=== PATIENT | male | born 1980 | race Two or more races ===

== ENCOUNTER 2018-11-15 01:06 | Emergency (ER) | payer OTHER ==
[~2018-11-15] VITALS: Ht 172.7 cm; Wt 77.1 kg
[2018-11-15] MEDS ORDERED: PANTOPRAZOLE SODIUM 40 MG TABLET.DR PO ONE ×2 (02:15→02:19)
[2018-11-15] MEDS ORDERED: MAG HYDROX/AL HYDROX/SIMETH 30 ML LIQUID UDC PO ONE (02:15)
--- NOTE | 2018-11-15 02:15 | NUR ---
Patient bib RA [id number] for the c/o mid abdominal pain x 3 days. Patient is AAO x 4 and states that pain is worsened. Patient denies N/V/D. Placed on monitor, safe environment implemented.
[2018-11-15] MEDS ORDERED: MAG HYDROX/AL HYDROX/SIMETH 30 ML LIQUID UDC ONE (02:18)
[2018-11-15] MEDS ORDERED: IV NORMAL SALINE 1000 ML BAG IV ONE ×2 (02:30→04:45)
[2018-11-15] MEDS ORDERED: ONDANSETRON 4 MG/2 ML VIAL IV ONE ×2 (02:30→04:45)
[2018-11-15] MEDS ORDERED: MORPHINE SULFATE 2 MG/1 ML DISP.SYRIN IV ONE ×2 (02:30→04:45)
[2018-11-15] MEDS ORDERED: ONDANSETRON 4 MG/2 ML VIAL ONE ×2 (02:36→04:44)
[2018-11-15] MEDS ORDERED: MORPHINE SULFATE 4 MG/1 ML DISP.SYRIN ONE (02:36)
[2018-11-15 02:45] LABS: BASOPHILS % (AUTO) 0.2 % (0.0-2.0); EOSINOPHILS # (AUTO) 0.1 K/uL (0.0-0.7); EOSINOPHILS % (AUTO) 0.9 % (0.0-7.0); HEMATOCRIT 36.3 % (36.7-47.1); HEMOGLOBIN 12.6 g/dL (12.5-16.3); LYMPHOCYTES # (AUTO) 2.2 K/uL (20.0-40.0); LYMPHOCYTES % (AUTO) 19.7 % (20.5-51.5); MEAN CORPUSCULAR HEMOGLOBIN 30.6 uug (23.8-33.4); MEAN CORPUSCULAR HGB CONC 35 g/dL (32.5-36.3); MEAN CORPUSCULAR VOLUME 87.9 fL (73.0-96.2); MONOCYTES # (AUTO) 0.7 K/uL (2.0-10.0); MONOCYTES % (AUTO) 6.7 % (0.0-11.0); NEUTROPHILS % (AUTO) 72.5 % (38.5-71.5); PLATELET COUNT (AUTO) 350 K/uL (152-348); RED BLOOD CELL COUNT(AUTO) 4.13 MIL/uL (4.06-5.63); WHITE BLOOD COUNT (AUTO) 11.1 K/uL (3.6-10.2)
[2018-11-15 02:54] LABS: CREATININE 1.1 mg/dL (0.6-1.3); POTASSIUM 3.7 mmol/L (3.5-5.1)
[2018-11-15 03:00] LABS: BILIRUBIN,DIRECT 0.1 mg/dL (0.0-0.2); BILIRUBIN,TOTAL 0.8 mg/dL (0.2-1.0); TOTAL PROTEIN, SERUM 7.4 g/dL (6.4-8.2)
--- NOTE | 2018-11-15 04:35 | NUR ---
Patient unable to provide urine at this time. ER MD aware.
[2018-11-15] MEDS ORDERED: MORPHINE SULFATE 2 MG/1 ML DISP.SYRIN ONE (04:44)
[2018-11-15] MEDS ORDERED: SWABABLE VALVE TRANSFER SET EA MC ONE (05:49)
[2018-11-15] MEDS ORDERED: IV NORMAL SALINE 250 ML IV ONE (05:49)
[2018-11-15] MEDS ORDERED: IOHEXOL 300MG/ML 100 ML INFUS..BTL ONE (05:49)
--- NOTE | 2018-11-15 05:50 | NUR ---
Pt down in CT scan.
--- NOTE | 2018-11-15 06:08 | NUR ---
Pt back in room from CT scan.
--- NOTE | 2018-11-15 06:46 | NUR ---
Patient discharged to home in stable conditon. Written and verbal after care instructions given. Patient verbalizes understanding of instructions. Patient states he will wait for his ride home in waiting room. Patient ambulated out of ER with stable gait.
[2018-11-15 06:48] VITALS: BP 110/54
== END 2018-11-15 06:48 | disposition home or self-care (01) ==
LOC: ER 01:09
DX: K52.9 Noninfective gastroenteritis and colitis, unspecified (principal)
CPT/HCPCS: 36415; 74177; 76770; 80048; 80076; 83690; 85025; 96374; 96375; 96376; 99284; J2270 ×2; J2405 ×2; Q9967; A4663; J7030; J7050

== ENCOUNTER 2019-06-22 15:17 | Emergency (ER) | payer OTHER ==
[~2019-06-22] VITALS: Ht 177.8 cm; Wt 81.6 kg
[2019-06-22 15:51] LABS: BASOPHILS % (AUTO) 0.5 % (0.0-2.0); EOSINOPHILS # (AUTO) 0.6 K/uL (0.0-0.7); EOSINOPHILS % (AUTO) 7.2 % (0.0-7.0); HEMATOCRIT 40.6 % (36.7-47.1); HEMOGLOBIN 13.9 g/dL (12.5-16.3); LYMPHOCYTES # (AUTO) 2.8 K/uL (20.0-40.0); LYMPHOCYTES % (AUTO) 33.2 % (20.5-51.5); MEAN CORPUSCULAR HEMOGLOBIN 30.7 uug (23.8-33.4); MEAN CORPUSCULAR HGB CONC 34 g/dL (32.5-36.3); MEAN CORPUSCULAR VOLUME 89.5 fL (73.0-96.2); MONOCYTES # (AUTO) 0.6 K/uL (2.0-10.0); MONOCYTES % (AUTO) 6.9 % (0.0-11.0); NEUTROPHILS # (AUTO) 4.4 K/uL (1.8-8.9); NEUTROPHILS % (AUTO) 52.2 % (38.5-71.5); PLATELET COUNT (AUTO) 273 K/uL (152-348); RED BLOOD CELL COUNT(AUTO) 4.53 MIL/uL (4.06-5.63); WHITE BLOOD COUNT (AUTO) 8.3 K/uL (3.6-10.2)
[2019-06-22 15:56] LABS: CREATININE 0.9 mg/dL (0.6-1.3); POTASSIUM 3.9 mmol/L (3.5-5.1)
[2019-06-22 16:02] LABS: BILIRUBIN,DIRECT 0.1 mg/dL (0.0-0.2); BILIRUBIN,TOTAL 0.5 mg/dL (0.2-1.0)
[2019-06-22 16:51] LABS: *BILIRUBIN,URIN NEGATIVE (NEGATIVE); *BLOOD, URINE NEGATIVE (NEGATIVE); *CLARITY,URINE CLEAR (CLEAR); *COLOR,URINE YELLOW (YELLOW); *KETONES,URINE NEGATIVE (NEGATIVE); *UROBILINOGEN,URINE 0.2 E.U./dl (NORMAL); LEUKOCYTE ESTERASE ,URINE NEGATIVE (NEGATIVE); NITRITE, URINE NEGATIVE (NEGATIVE); PH,URINE 7.5 (5.0-8.0); UGLUCOSE NEGATIVE (NEGATIVE)
--- NOTE | 2019-06-22 18:10 | NUR ---
Patient does not wish to proceed with medical care recommended by . Patient given information related to possible complications, up to and including , which could occur as a result of leaving the hospital at this time. Patient verbalizes understanding of risks involved due to leaving against medical advice. Patient has signed AMA form.
== END 2019-06-22 18:13 | disposition left against medical advice (07) ==
LOC: ER 15:18
DX: K92.2 Gastrointestinal hemorrhage, unspecified (principal)
CPT/HCPCS: 36415; 83690; 85025; A4663

== ENCOUNTER 2019-06-23 02:18 | Emergency (ER) | payer OTHER ==
[~2019-06-23] VITALS: Ht 177.8 cm; Wt 79.4 kg
[2019-06-23] MEDS ORDERED: PANTOPRAZOLE SODIUM 40 MG VIAL IV ONE (02:45)
[2019-06-23] MEDS ORDERED: IV NORMAL SALINE 1000 ML BAG IV ONE (02:45)
[2019-06-23] MEDS ORDERED: PANTOPRAZOLE SODIUM 40 MG VIAL ONE (02:50)
--- NOTE | 2019-06-23 02:50 | NUR ---
MD AT BEDSIDE FOR HX AND PHYSICAL PT IS ASLEEP BUT EASILY ROUSED
--- NOTE | 2019-06-23 03:00 | NUR ---
PT ON SEMI DELANEY'S POSITION, SUPINE ASLEEP BUT EASILY ROUSED ABLE TO TOLERATE IVF INSERTION TO R G18 POOL HALL INSPECTOR TRANSPORTED PT VIA KELTON BRAXTONX2 UP, BED AT LOWEST POSITION
--- NOTE | 2019-06-23 03:10 | NUR ---
PT BACK FROM CT ACCOMPANIED BY VEGETABLE CANNER VIA IRAIS ASLEEP, NAD, EASILY ROUSABLE SIDERAILSX2 UP, BED AT LOWEST POSITION MONITORED ACCORDINGLY KEPT WARM DRY AND COMFORTABLE
[2019-06-23 03:22] LABS: BASOPHILS % (AUTO) 0.3 % (0.0-2.0); EOSINOPHILS # (AUTO) 0.6 K/uL (0.0-0.7); EOSINOPHILS % (AUTO) 6.9 % (0.0-7.0); HEMATOCRIT 36.8 % (36.7-47.1); LYMPHOCYTES # (AUTO) 3.1 K/uL (20.0-40.0); LYMPHOCYTES % (AUTO) 38.4 % (20.5-51.5); MEAN CORPUSCULAR HEMOGLOBIN 31.1 uug (23.8-33.4); MEAN CORPUSCULAR HGB CONC 35 g/dL (32.5-36.3); MONOCYTES # (AUTO) 0.6 K/uL (2.0-10.0); MONOCYTES % (AUTO) 6.9 % (0.0-11.0); NEUTROPHILS # (AUTO) 3.8 K/uL (1.8-8.9); NEUTROPHILS % (AUTO) 47.5 % (38.5-71.5); PLATELET COUNT (AUTO) 275 K/uL (152-348); RED BLOOD CELL COUNT(AUTO) 4.18 MIL/uL (4.06-5.63); WHITE BLOOD COUNT (AUTO) 8.1 K/uL (3.6-10.2)
[2019-06-23 03:31] LABS: BILIRUBIN,DIRECT 0.1 mg/dL (0.0-0.2); BILIRUBIN,TOTAL 0.6 mg/dL (0.2-1.0); CREATININE 1.1 mg/dL (0.6-1.3); POTASSIUM 3.5 mmol/L (3.5-5.1); TOTAL PROTEIN, SERUM 6.5 g/dL (6.4-8.2)
--- NOTE | 2019-06-23 04:07 | NUR ---
Patient discharged to home in stable conditon. Written and verbal after care instructions given. Patient verbalizes understanding of instructions. AMBULATORY W/ STABLE GAIT ALL BELONGINGS W/ PT DC IV PRIOR TO DISCHARGE, DRESSED
[2019-06-23 04:15] VITALS: BP 115/73
== END 2019-06-23 04:00 | disposition home or self-care (01) ==
LOC: ER 02:20
DX: K29.70 Gastritis, unspecified, without bleeding (principal)
CPT/HCPCS: 36415; 74176; 80048; 80076; 83690; 85025; 85730; 86850; 86900; 86901; 96374; 99284; C9113; A4663; J7030

== ENCOUNTER 2021-07-04 01:29 | Emergency (ER) | payer OTHER ==
[~2021-07-04] VITALS: Ht 177.8 cm; Wt 79.4 kg
[2021-07-04] MEDS ORDERED: IV NS 1000 ML 1,000 ML IV ONE (02:15)
[2021-07-04] MEDS ORDERED: MORPHINE SULFATE 4 MG/1 ML DISP.SYRIN IV ONE (02:15)
[2021-07-04] MEDS ORDERED: ONDANSETRON 4 MG/2 ML VIAL IV ONE (02:15)
[2021-07-04 02:24] LABS: HEMATOCRIT 43.3 % (36.7-47.1); MEAN CORPUSCULAR HEMOGLOBIN 31.6 uug (23.8-33.4); MEAN CORPUSCULAR VOLUME 89.1 fL (73.0-96.2); PLATELET COUNT (AUTO) 288 K/uL (152-348)
[2021-07-04] MEDS ORDERED: MORPHINE SULFATE 4 MG/1 ML DISP.SYRIN ONE (02:35)
[2021-07-04] MEDS ORDERED: ONDANSETRON 4 MG/2 ML VIAL ONE (02:36)
[2021-07-04 02:43] LABS: BILIRUBIN,DIRECT 0.1 mg/dL (0.0-0.2); BILIRUBIN,TOTAL 0.6 mg/dL (0.2-1.0); POTASSIUM 3.3 mmol/L (3.5-5.1); TOTAL PROTEIN, SERUM 7.1 g/dL (6.4-8.2)
[2021-07-04] MEDS ORDERED: FAMOTIDINE. 20 MG/2 ML VIAL IV ONE (02:45)
[2021-07-04] MEDS ORDERED: MAG HYDROX/AL HYDROX/SIMETH 30 ML LIQUID UDC PO ONE (04:15)
[2021-07-04] MEDS ORDERED: LIDOCAINE VISCUS 2% 15 ML UDC MM ONE (04:15)
[2021-07-04] MEDS ORDERED: DICYCLOMINE HCL LIQ 10 MG/5 ML UDC PO ONE (04:15)
[2021-07-04] MEDS ORDERED: POTASSIUM CHLORIDE 20 MEQ TAB.PRT.SR PO ONE (04:15)
[2021-07-04] MEDS ORDERED: DICYCLOMINE HCL LIQ 10 MG/5 ML UDC ONE (04:32)
[2021-07-04] MEDS ORDERED: LIDOCAINE VISCUS 2% 15 ML UDC ONE (04:32)
[2021-07-04] MEDS ORDERED: MAG HYDROX/AL HYDROX/SIMETH 30 ML LIQUID UDC ONE (04:33)
[2021-07-04] MEDS ORDERED: POTASSIUM CHLORIDE 20 MEQ TAB.PRT.SR ONE (04:36)
--- NOTE | 2021-07-04 05:35 | NUR ---
The wildlife biology technician was called in at 4:31 am by the Biblical Studies Professor even though the ER ordered the US Gall Bladder at 3:00pm.
[2021-07-04] MEDS ORDERED: DICY20TA11 PO (06:01)
[2021-07-04] MEDS ORDERED: FAMO-132 PO (06:01)
--- NOTE | 2021-07-04 06:29 | NUR ---
IV removed. Catheter intact and site benign. Pressure and 4x4 gauze applied to site. No bleeding noted.
--- NOTE | 2021-07-04 06:38 | NUR ---
Patient discharged to home in stable condition. Written and verbal after care instructions given. Patient verbalizes understanding of instructions. Stressed follow up or return to ER for worsening s/s.
[2021-07-04 06:40] VITALS: BP 117/67
== END 2021-07-04 06:41 | disposition home or self-care (01) ==
LOC: ER 01:31
DX: K80.20 Calculus of gallbladder without cholecystitis without obstruction (principal); E87.6 Hypokalemia; R94.31 Abnormal electrocardiogram [ECG] [EKG]
CPT/HCPCS: 36415; 76705; 80048; 80076; 83690; 84484; 85025; 93005; 96361; 96374; 96375; 99285; J2270; J2405; J3490; 70030-TC; A4663; J7030